=== PATIENT | female | born 1980 | race Caucasian/White ===

== ENCOUNTER 2017-10-19 21:30 | Emergency (ER) | payer BC ==
[~2017-10-19 21:30] MED LIST: ISOVUE-370 76%-LOCM 1 ML ONE
[2017-10-19] MEDS ORDERED: Ondansetron HCl/PF 4 MG/2 ML Vial ONE (21:59)
[2017-10-19] MEDS ORDERED: Famotidine In NaCl 20 mg/50 ml Premix Bag ONE (21:59)
[2017-10-19] MEDS ORDERED: Fentanyl 100 MCG/2 ML VIAL ONE (22:14)
[2017-10-19 22:27] LABS: #Basophils 0.1 thou/uL (0.0-0.2); #Eosinphils 0.2 thou/uL (0.0-0.7); #Lymphocytes 2.3 thou/uL (1.20-3.40); #Monocytes 0.7 thou/uL (0.11-0.59); #Neutrophils 5.9 thou/uL (1.40-6.50); %Basophils 1.2 % (0.0-1.0); %Eosinophils 2.5 % (0.0-10.0); %Lymphocytes 24.8 % (21.0-51.0); %Monocytes 7.1 % (0.0-10.0); %Neutrophils 64.4 % (42.0-75.0); Hemoglobin 14.2 g/dL (12.0-16.0); Mean Corpuscular HGB CONC 34.7 g/dL (32.0-36.0); Mean Corpuscular Hemoglobin 31.4 pg (27.0-31.0); Mean Corpuscular Volume 90.4 fL (78.0-98.0); Mean Platelet Volume 6.7 fL (7.4-10.4); Platelet Count 239 thou/uL (130-400); RBC Distribution Width 11.6 % (11.5-14.5); Red Blood Cell (RBC) Count 4.52 mill/uL (4.20-5.40); White Blood Cell (WBC) Count 9.2 thou/uL (4.8-10.8)
[2017-10-19 22:31] LABS: Pregnancy Test - Urine (BHCG) Negative (Negative); Pregu Control Background? CLEAR/WHITE (CLR/WHITE); Pregu Control Bar Appear? YES (CONTROL BAR); Specific Gravity 1.017 (1.002-1.036)
[2017-10-19 22:32] LABS: Clarity Hazy (Clear)
[2017-10-19 22:33] LABS: Bilirubin Negative (Negative); Blood, Urine Small (Negative); Glucose, Urine (Dipstick) Negative (Negative); Leukocyte Negative (Negative); Nitrite Negative (Negative); Protein, Urine (Dipstick) Negative (Neg-Trace)
[2017-10-19 22:34] LABS: ALT (SGPT) 53 U/L (8-55); AST (SGOT) 35 U/L (5-34); Albumin 4.1 g/dL (3.5-5.0); Alkaline Phosphatase 120 U/L (40-150); Anion Gap 13 mmol/L (10-20); BUN (Urea Nitrogen) 12 mg/dL (7.0-18.7); Bilirubin, Total 0.5 mg/dL (0.2-1.2); Calc. Creatinine Clearance 0 mL/min (70-130); Calcium 9.4 mg/dL (7.8-10.44); Carbon Dioxide 25 mmol/L (22-29); Chloride 106 mmol/L (98-107); Estimated GFR-MDRD 71; Glucose 85 mg/dL (70-105); Lipase 50 U/L (8-78); Potassium 3.7 mmol/L (3.5-5.1); Protein, Total 7.1 g/dL (6.0-8.3); Sodium 140 mmol/L (136-145)
[2017-10-19 22:38] LABS: Bacteria/HPF 1+ HPF (None Seen); WBC/HPF 0-3 HPF (0-3)
[2017-10-19] MEDS ORDERED: Lisinopril 20 MG TAB ONE (22:52)
--- NOTE | 2017-10-20 00:07 | CT ---
CT ABDOMEN AND PELVIS WITH CONTRAST 10/19/[address] of the abdomen and pelvis was performed for evaluation of abdominal pain. Axial slices were acquired, then coronal and sagittal reconstructions were done. IV contrast was given but oral contra st was withheld by request. The lung bases show a little scattered atelectasis. On slice 13, there is a very small 5 mm nodular a kasia abutting the pleural posteriorly on the left side. There are some areas around that appear to be scarring. It is difficult to tell if this is just an area of scarring or very small nodule. It probab ly would be best to do a followup scan in six to twelve months to ensure stability. The odds of signi ficance in this age group is quite low, however. The liver, spleen, pancreas, gallbladder, adrenal glands, and abdominal aorta were unremarkable. Ther e is a very small 7 mm cyst in the right kidney of no concern. There is no hydronephrosis. A fat filled umbilical hernia is noted. The bowel shows no distention. There are no inflammatory ortiz ges around bowel. The transverse colon (where the patient has some pain) was not very remarkable. Best e of the proximal small bowel is slightly fluid filled but really not at all distended. There is no m esenteric adenopathy of concern. No free air or free fluid was present. CT of the pelvis was remarkable for a 7 mm cystic area in the right adnexa. There are multiple cysts present that individually measure in the 2 to 4 cm range. Some have somewhat thick margins. While I u nderstand the patient has a history of PCOS, this seems a bit more extensive than one normally sees w ith that. I would recommend gynecological referral and an ultrasound if one has not been done recentl y. No free fluid was seen in the pelvis. There are no signs of pelvic inflammatory change. IMPRESSION: 1. Equivocal mild thickening of the descending colon, age indeterminate. This may or may not be acute. 2. Faint 5 mm nodular area left lower lobe abutting the pleura. It is difficult to tell if this is an actual nodule or area of inflammatory change. A CT followup in six to twelve months might be co nsidered. 3. Large multicystic area in the right adnexa measuring about 7 cm in total size. Gynecological followup and ultrasound recommended. 4. Small fat filled umbilical hernia. 5. Incidental finding of mild concentric bulge of L5-S1. Findings discussed with Dr. Webber at 1470 on 10/19/17. POS: HOME
== END 2017-10-19 23:50 | disposition home or self-care (01) ==
LOC: BURERS 21:30
DX: K42.9 Umbilical hernia without obstruction or gangrene (principal); N94.89 Other specified conditions associated with female genital organs and menstrual cycle; I10 Essential (primary) hypertension; F17.210 Nicotine dependence, cigarettes, uncomplicated; Z79.899 Other long term (current) drug therapy
CPT/HCPCS: 74177; 80053; 81003; 81015; 81025; 83690; 85025; 87086; 96361; 96365; 96375; A4216; J2405; J3010